=== PATIENT | male | born 1950 | race African-American/Black ===

== ENCOUNTER 2021-07-04 23:38 | Inpatient (IN) ==
[2021-07-05 00:43] LABS: ABG Base Excess 3.2 MMOL/L (-2.5-2.5); ABG HCO3 27.2 MMOL/L (20-26); ABG Oxygen Saturation 94.9 % (95-100); ABG PCO2 45.9 MM HG (35-48); ABG PH 7.403 (7.35-7.45); ABG PO2 74.7 MM HG (80-95); ABG TCO2 25.2 MMOL/L (23-27)
[2021-07-05 01:28] LABS: Alanine Aminotransferase 20 U/L (16-61); Albumin 3.5 G/DL (3.4-5.0); Alkaline Phosphatase 88 U/L (45-117); Aspartate Amino Transferase 29 U/L (0-37); Blood Urea Nitrogen 8 MG/DL (7-18); Calcium 9.4 MG/DL (8.5-10.1); Carbon Dioxide 31 MMOL/L (21-32); Estimated Glom Filtration Rate 84 ML/MIN; Glucose 85 MG/DL (74-106); Osmolality,Calculated 273.5 MOS/KG (273-304); Potassium 4.2 MMOL/L (3.5-5.1); Sodium 139 MMOL/L (136-145); Total Protein 6.8 G/DL (6.4-8.2)
[2021-07-05 02:08] LABS: Basophils # 0.1 10*3/uL (0.0-0.2); Basophils % 0.8 % (0.0-0.8); Eosinophils # 0.2 10*3/uL (0.0-0.87); Eosinophils % 2.4 % (0.00-10.9); Hematocrit 39.5 VOL% (42.0-52.0); Hemoglobin 13.3 GM/DL (14.0-18.0); Immature Granulocytes % 0.2 %; Immature Granulocytes Absolute 0.02 #; Lymphocytes # 4.4 10*3/uL (1.4-4.0); Lymphocytes % 51.5 % (21.2-54.2); Mean Corpuscular HGB Conc 33.7 GM/DL (32-36); Mean Corpuscular Volume 88.4 FL (87-102); Mean Platelet Volume 9.6 FL (9.6-12.0); Monocytes % 8.9 % (1.7-12.7); Neutrophils % 36.2 % (38.7-73.9); Platelet Count 402 T/CUMM (130-400); Red Blood Count 4.47 MC/CUMM (3.8-5.5); Red Cell Distribution Width 14.1 % (9.3-17.3); White Blood Count 8.6 T/CUMM (4-12)
[2021-07-05 03:26] LABS: Bilirubin,Urine Negative (Negative); Blood, Urine Small mg/dL (Negative); Glucose,Urine (UA) Negative (Negative); Ketones,Urine Negative (Negative); Mucus,Urine Occasional /LPF (Occasional); Nitrite,Urine Negative (Negative); Protein,Urine Negative; RBC,Urine 3 /HPF (0-4); Urine Appearance CLEAR (Clear); Urine Color Yellow (Yellow); Urine Specific Gravity 1.006 (1.001-1.035)
[2021-07-05 03:43] LABS: Barbiturates Screen,Urine Negative (Negative); Benzodiazepines Screen,Urine Negative (Negative); Cannabinoid Screen,Urine Negative (Negative); Opiate Screen,Urine Negative (Negative); Phencyclidine Screen,Urine Negative (Negative)
[2021-07-05 03:56] LABS: Eosinophils 4 % (0-10); Lymphocytes 60 % (20-55); Microcytosis Slight; Segmented Neutrophils 26 % (50-85); Target Cells Slight; Total Cells Counted 100
[2021-07-05 03:57] LABS: Hypochromasia Slight
[2021-07-05 03:58] LABS: Burr Cells Slight
[2021-07-05] MEDS: ENOXAPARIN 40 MG/0.4 ML SYRINGE SUBCUT SCH (07:01)
[2021-07-05 07:28] LABS: Risk Ratio 3.73; VLDL Cholesterol 15.8 MG/DL
[2021-07-05] MEDS: ASPIRIN 325 MG TABLET PO SCH (08:07)
[2021-07-05] MEDS: PANTOPRAZOLE 40 MG TABLET PO SCH (08:07)
[2021-07-05] MEDS ORDERED: LACTULOSE 20 GM/30 ML UDCUP PO ONE (11:00)
[2021-07-06 06:50] LABS: Basophils # 0.1 10*3/uL (0.0-0.2); Basophils % 0.6 % (0.0-0.8); Eosinophils # 0.2 10*3/uL (0.0-0.87); Eosinophils % 2.3 % (0.00-10.9); Hematocrit 36.9 VOL% (42.0-52.0); Hemoglobin 12.4 GM/DL (14.0-18.0); Immature Granulocytes % 0.2 %; Immature Granulocytes Absolute 0.02 #; Lymphocytes # 4.8 10*3/uL (1.4-4.0); Lymphocytes % 52.6 % (21.2-54.2); Mean Corpuscular HGB Conc 33.6 GM/DL (32-36); Mean Corpuscular Volume 87.4 FL (87-102); Mean Platelet Volume 9.7 FL (9.6-12.0); Monocytes % 6.9 % (1.7-12.7); Neutrophils % 37.4 % (38.7-73.9); Platelet Count 352 T/CUMM (130-400); Red Blood Count 4.22 MC/CUMM (3.8-5.5); Red Cell Distribution Width 14.2 % (9.3-17.3); White Blood Count 9.1 T/CUMM (4-12)
[2021-07-06 07:14] LABS: Calcium 8.6 MG/DL (8.5-10.1); Osmolality,Calculated 282.3 MOS/KG (273-304); Potassium 3.6 MMOL/L (3.5-5.1)
[2021-07-06 07:17] LABS: Eosinophils 3 % (0-10); Lymphocytes 52 % (20-55); Segmented Neutrophils 35 % (50-85); Total Cells Counted 100
[2021-07-06 07:18] LABS: Acanthocytes Few; Burr Cells Few; Hypochromasia 1+; Microcytosis 1+; Target Cells Slight
[2021-07-06 07:19] LABS: Platelet Estimate Normal
[2021-07-06] MEDS: PANTOPRAZOLE 40 MG TABLET PO SCH (09:27)
[2021-07-06] MEDS: ASPIRIN 325 MG TABLET PO SCH (09:27)
[2021-07-06] MEDS: ENOXAPARIN 40 MG/0.4 ML SYRINGE SUBCUT SCH (09:27)
[2021-07-06] MEDS: FOLIC ACID 1 MG TABLET PO SCH ×2 (09:27→10:38)
[2021-07-06 09:54] LABS: Free T4 (Free Thyroxine) 0.95 NG/DL (0.76-1.46); Thyroid Stimulating Hormone 0.907 uIU/ml (0.358-3.74)
[2021-07-06] MEDS ORDERED: THIAMINE 200 MG/2 ML VIAL IV ONE (11:00)
[2021-07-06 12:15] LABS: Folate 8.14 NG/ML (5.38-24.0); Vitamin B12 211 PG/ML (211-911)
[2021-07-06 13:46] LABS: RPR Confirm - Less than 1 yr REACTIVE (Nonreactive)
[2021-07-06] MEDS: PENICILLIN G POTASSIUM INJ 6,000,000 UNIT in SODIUM CHLORIDE 0.9% 100 ML IV SCH (21:48)
[2021-07-07] MEDS: PENICILLIN G POTASSIUM INJ 6,000,000 UNIT in SODIUM CHLORIDE 0.9% 100 ML IV SCH ×2 (03:20→09:33)
[2021-07-07 05:57] LABS: Basophils % 0.4 % (0.0-0.8); Eosinophils # 0.2 10*3/uL (0.0-0.87); Eosinophils % 2.3 % (0.00-10.9); Hematocrit 35.2 VOL% (42.0-52.0); Hemoglobin 11.9 GM/DL (14.0-18.0); Immature Granulocytes % 0.2 %; Immature Granulocytes Absolute 0.02 #; Lymphocytes # 4.8 10*3/uL (1.4-4.0); Lymphocytes % 53.2 % (21.2-54.2); Mean Corpuscular HGB Conc 33.8 GM/DL (32-36); Mean Corpuscular Volume 88.7 FL (87-102); Mean Platelet Volume 9.1 FL (9.6-12.0); Monocytes % 9.2 % (1.7-12.7); Neutrophils % 34.7 % (38.7-73.9); Platelet Count 338 T/CUMM (130-400); Red Blood Count 3.97 MC/CUMM (3.8-5.5); Red Cell Distribution Width 14.2 % (9.3-17.3); White Blood Count 9.1 T/CUMM (4-12)
[2021-07-07 06:16] LABS: Calcium 8.6 MG/DL (8.5-10.1); Osmolality,Calculated 278.4 MOS/KG (273-304); Potassium 3.8 MMOL/L (3.5-5.1)
[2021-07-07 06:36] LABS: Eosinophils 3 % (0-10); Hypochromasia Slight; Lymphocytes 56 % (20-55); Microcytosis Slight; Platelet Estimate Adequate; Segmented Neutrophils 33 % (50-85); Total Cells Counted 100
[2021-07-07 08:28] LABS: INR 0.9; PT Patient Result 10.4 SECS (10.5-12.0)
[2021-07-07] MEDS: ASPIRIN 325 MG TABLET PO SCH (09:33)
[2021-07-07] MEDS: THIAMINE 100 MG TABLET PO SCH (10:06)
[2021-07-07] MEDS: PANTOPRAZOLE 40 MG TABLET PO SCH (10:06)
[2021-07-07] MEDS: FOLIC ACID 1 MG TABLET PO SCH (10:06)
[2021-07-07] MEDS ORDERED: HALOPERIDOL 5 MG/ML AMP IM ONE (14:12)
[2021-07-07] MEDS ORDERED: LORazepam 2 MG/1 ML VIAL ONE (14:36)
[2021-07-07] MEDS ORDERED: LORazepam 2 MG/1 ML VIAL IM ONE (15:00)
[2021-07-07] MEDS: PENICILLIN G POTASSIUM INJ 4,000,000 UNIT in SODIUM CHLORIDE 0.9% 100 ML IV SCH ×2 (15:46→23:02)
[2021-07-07] MEDS ORDERED: HALOPERIDOL 5 MG TABLET PO SCH (21:00)
[2021-07-07] MEDS: risperiDONE 1 MG TABLET PO SCH (23:03)
[2021-07-08] MEDS ORDERED: HALOPERIDOL 5 MG/ML AMP IM PRN (00:05)
[2021-07-08] MEDS: PENICILLIN G POTASSIUM INJ 4,000,000 UNIT in SODIUM CHLORIDE 0.9% 100 ML IV SCH ×5 (03:04→18:01)
[2021-07-08 08:45] LABS: Basophils # 0.1 10*3/uL (0.0-0.2); Basophils % 0.9 % (0.0-0.8); Eosinophils # 0.1 10*3/uL (0.0-0.87); Hematocrit 40.5 VOL% (42.0-52.0); Hemoglobin 12.8 GM/DL (14.0-18.0); Immature Granulocytes % 0.2 %; Immature Granulocytes Absolute 0.01 #; Lymphocytes # 2.7 10*3/uL (1.4-4.0); Lymphocytes % 41.9 % (21.2-54.2); Mean Corpuscular HGB Conc 31.6 GM/DL (32-36); Mean Corpuscular Volume 95.5 FL (87-102); Mean Platelet Volume 9.5 FL (9.6-12.0); Monocytes % 9.7 % (1.7-12.7); Neutrophils % 45.3 % (38.7-73.9); Platelet Count 322 T/CUMM (130-400); Red Blood Count 4.24 MC/CUMM (3.8-5.5); Red Cell Distribution Width 15.1 % (9.3-17.3); White Blood Count 6.5 T/CUMM (4-12)
[2021-07-08 09:11] LABS: Osmolality,Calculated 278.3 MOS/KG (273-304); Potassium 4.3 MMOL/L (3.5-5.1)
[2021-07-08] MEDS: THIAMINE 100 MG TABLET PO SCH (10:29)
[2021-07-08] MEDS: FOLIC ACID 1 MG TABLET PO SCH (10:29)
[2021-07-08] MEDS: PANTOPRAZOLE 40 MG TABLET PO SCH (10:29)
[2021-07-08 10:44] LABS: Appearance,CSF Clear; Lymphocytes,CSF 80 %; Monocytes,CSF 20 %; Red Blood Cell,CSF 469 C/CUMM; White Blood Cell,CSF 11 C/CUMM
[2021-07-08 10:45] LABS: Glucose,CSF 52 MG/DL (40-70)
[2021-07-08] MEDS: LORazepam 2 MG/1 ML VIAL IM PRN (10:59)
[2021-07-08] MEDS: LACTATED RINGERS 1,000 ML IV SCH (11:33)
[2021-07-08 14:00] LABS: Albumin 3.1 G/DL (3.4-5.0); Bilirubin,Total 0.9 MG/DL (0.20-1.00); Calcium 9.1 MG/DL (8.5-10.1); Osmolality,Calculated 278.3 MOS/KG (273-304); Potassium 3.8 MMOL/L (3.5-5.1); Total Protein 6.6 G/DL (6.4-8.2)
[2021-07-08] MEDS: risperiDONE 1 MG TABLET PO SCH (21:25)
[2021-07-09] MEDS: PENICILLIN G POTASSIUM INJ 4,000,000 UNIT in SODIUM CHLORIDE 0.9% 100 ML IV SCH ×6 (00:20→23:07)
[2021-07-09] MEDS: LACTATED RINGERS 1,000 ML IV SCH ×2 (01:58→23:10)
[2021-07-09] MEDS: LORazepam 2 MG/1 ML VIAL IM PRN (03:26)
[2021-07-09 05:32] LABS: Basophils # 0.1 10*3/uL (0.0-0.2); Basophils % 0.6 % (0.0-0.8); Eosinophils # 0.2 10*3/uL (0.0-0.87); Hematocrit 38.2 VOL% (42.0-52.0); Immature Granulocytes % 0.2 %; Immature Granulocytes Absolute 0.02 #; Lymphocytes # 3.6 10*3/uL (1.4-4.0); Lymphocytes % 42.3 % (21.2-54.2); Mean Corpuscular Volume 89.3 FL (87-102); Mean Platelet Volume 9.2 FL (9.6-12.0); Monocytes % 8.5 % (1.7-12.7); Neutrophils % 46.4 % (38.7-73.9); Platelet Count 385 T/CUMM (130-400); Red Blood Count 4.28 MC/CUMM (3.8-5.5); Red Cell Distribution Width 14.4 % (9.3-17.3); White Blood Count 8.6 T/CUMM (4-12)
[2021-07-09 05:54] LABS: Calcium 9.1 MG/DL (8.5-10.1); Potassium 4.1 MMOL/L (3.5-5.1)
[2021-07-09] MEDS ORDERED: HALOPERIDOL 5 MG/ML AMP IM PRN ×2 (08:53→10:00)
[2021-07-09] MEDS ORDERED: LORazepam 2 MG/1 ML VIAL IV PRN ×2 (09:00→09:52)
[2021-07-09] MEDS: FOLIC ACID 1 MG TABLET PO SCH (09:42)
[2021-07-09] MEDS: THIAMINE 100 MG TABLET PO SCH (09:42)
[2021-07-09] MEDS: PANTOPRAZOLE 40 MG TABLET PO SCH (09:42)
[2021-07-09 12:41] LABS: VDRL Spinal Fluid Negative (Negative)
[2021-07-09 14:31] LABS: HIV Antigen/Antibody Result Nonreactive (Nonreactive)
[2021-07-09] MEDS: risperiDONE 1 MG TABLET PO SCH (23:07)
[2021-07-10] MEDS: PENICILLIN G POTASSIUM INJ 4,000,000 UNIT in SODIUM CHLORIDE 0.9% 100 ML IV SCH ×6 (00:23→21:26)
[2021-07-10] MEDS: LACTATED RINGERS 1,000 ML IV SCH (00:24)
[2021-07-10] MEDS ORDERED: LORazepam 2 MG/1 ML VIAL ONE (00:46)
[2021-07-10 05:25] LABS: Basophils # 0.1 10*3/uL (0.0-0.2); Basophils % 0.5 % (0.0-0.8); Eosinophils # 0.2 10*3/uL (0.0-0.87); Eosinophils % 2.2 % (0.00-10.9); Hemoglobin 12.8 GM/DL (14.0-18.0); Immature Granulocytes % 0.2 %; Immature Granulocytes Absolute 0.02 #; Lymphocytes # 3.8 10*3/uL (1.4-4.0); Lymphocytes % 38.1 % (21.2-54.2); Mean Corpuscular HGB Conc 33.7 GM/DL (32-36); Mean Platelet Volume 9.2 FL (9.6-12.0); Monocytes % 9.3 % (1.7-12.7); Neutrophils % 49.7 % (38.7-73.9); Platelet Count 371 T/CUMM (130-400); Red Blood Count 4.32 MC/CUMM (3.8-5.5); Red Cell Distribution Width 14.3 % (9.3-17.3); White Blood Count 9.9 T/CUMM (4-12)
[2021-07-10 05:57] LABS: Calcium 8.6 MG/DL (8.5-10.1); Potassium 4.1 MMOL/L (3.5-5.1)
[2021-07-10] MEDS: ENOXAPARIN 40 MG/0.4 ML SYRINGE SUBCUT SCH (08:39)
[2021-07-10] MEDS: THIAMINE 100 MG TABLET PO SCH (09:15)
[2021-07-10] MEDS: PANTOPRAZOLE 40 MG TABLET PO SCH (09:15)
[2021-07-10] MEDS: FOLIC ACID 1 MG TABLET PO SCH (09:15)
[2021-07-10] MEDS: risperiDONE 1 MG TABLET PO SCH (21:22)
[2021-07-10] MEDS: HALOPERIDOL 5 MG/ML AMP IM PRN (21:22)
[2021-07-11] MEDS: PENICILLIN G POTASSIUM INJ 4,000,000 UNIT in SODIUM CHLORIDE 0.9% 100 ML IV SCH ×6 (02:24→20:55)
[2021-07-11 05:09] LABS: Basophils % 0.5 % (0.0-0.8); Eosinophils # 0.2 10*3/uL (0.0-0.87); Eosinophils % 1.9 % (0.00-10.9); Hematocrit 39.7 VOL% (42.0-52.0); Hemoglobin 13.5 GM/DL (14.0-18.0); Immature Granulocytes % 0.1 %; Immature Granulocytes Absolute 0.01 #; Mean Corpuscular Volume 88.8 FL (87-102); Mean Platelet Volume 9.1 FL (9.6-12.0); Monocytes % 8.1 % (1.7-12.7); Neutrophils % 53.4 % (38.7-73.9); Platelet Count 390 T/CUMM (130-400); Red Blood Count 4.47 MC/CUMM (3.8-5.5); Red Cell Distribution Width 14.3 % (9.3-17.3); White Blood Count 8.3 T/CUMM (4-12)
[2021-07-11 05:32] LABS: Calcium 9.4 MG/DL (8.5-10.1); Osmolality,Calculated 275.4 MOS/KG (273-304); Potassium 4.1 MMOL/L (3.5-5.1)
[2021-07-11] MEDS: THIAMINE 100 MG TABLET PO SCH (09:06)
[2021-07-11] MEDS: ENOXAPARIN 40 MG/0.4 ML SYRINGE SUBCUT SCH (09:06)
[2021-07-11] MEDS: FOLIC ACID 1 MG TABLET PO SCH ×2 (09:06→09:15)
[2021-07-11] MEDS: PANTOPRAZOLE 40 MG TABLET PO SCH ×2 (09:06→09:15)
[2021-07-11 14:11] LABS: M. Tuberculosis PCR Result Negative (Negative); M. Tuberculosis PCR Source CSF
[2021-07-11] MEDS: risperiDONE 1 MG TABLET PO SCH (21:09)
[2021-07-12] MEDS: PENICILLIN G POTASSIUM INJ 4,000,000 UNIT in SODIUM CHLORIDE 0.9% 100 ML IV SCH ×6 (01:10→20:53)
[2021-07-12] MEDS: HALOPERIDOL 5 MG/ML AMP IM PRN ×2 (01:41→08:40)
[2021-07-12] MEDS: LORazepam 2 MG/1 ML VIAL IV PRN (01:59)
[2021-07-12 05:57] LABS: Basophils # 0.1 10*3/uL (0.0-0.2); Basophils % 0.5 % (0.0-0.8); Eosinophils # 0.2 10*3/uL (0.0-0.87); Eosinophils % 1.9 % (0.00-10.9); Hematocrit 40.5 VOL% (42.0-52.0); Hemoglobin 13.6 GM/DL (14.0-18.0); Immature Granulocytes % 0.2 %; Immature Granulocytes Absolute 0.02 #; Lymphocytes # 3.6 10*3/uL (1.4-4.0); Lymphocytes % 37.4 % (21.2-54.2); Mean Corpuscular HGB Conc 33.6 GM/DL (32-36); Mean Corpuscular Volume 88.2 FL (87-102); Mean Platelet Volume 9.2 FL (9.6-12.0); Monocytes % 12.3 % (1.7-12.7); Neutrophils % 47.7 % (38.7-73.9); Platelet Count 364 T/CUMM (130-400); Red Blood Count 4.59 MC/CUMM (3.8-5.5); Red Cell Distribution Width 14.6 % (9.3-17.3); White Blood Count 9.5 T/CUMM (4-12)
[2021-07-12 06:21] LABS: Calcium 9.3 MG/DL (8.5-10.1); Osmolality,Calculated 281.3 MOS/KG (273-304); Potassium 4.3 MMOL/L (3.5-5.1)
[2021-07-12] MEDS: THIAMINE 100 MG TABLET PO SCH (09:32)
[2021-07-12] MEDS: PANTOPRAZOLE 40 MG TABLET PO SCH (09:32)
[2021-07-12] MEDS: FOLIC ACID 1 MG TABLET PO SCH (09:32)
[2021-07-12] MEDS: ENOXAPARIN 40 MG/0.4 ML SYRINGE SUBCUT SCH (09:34)
[2021-07-12 12:36] LABS: West Nile Virus Ab, IgG, CSF Negative (Negative); West Nile Virus Ab, IgM, CSF Negative (Negative)
[2021-07-12 15:22] LABS: % Iron Saturation 27.8 % (18-50); Ferritin 185.4 ng/mL (26-388)
[2021-07-12] MEDS: risperiDONE 1 MG TABLET PO SCH (20:54)
[2021-07-13] MEDS: PENICILLIN G POTASSIUM INJ 4,000,000 UNIT in SODIUM CHLORIDE 0.9% 100 ML IV SCH ×6 (01:59→21:30)
[2021-07-13] MEDS: LORazepam 2 MG/1 ML VIAL IV PRN (05:17)
[2021-07-13 05:51] LABS: Basophils # 0.1 10*3/uL (0.0-0.2); Basophils % 0.5 % (0.0-0.8); Eosinophils # 0.3 10*3/uL (0.0-0.87); Eosinophils % 2.8 % (0.00-10.9); Hematocrit 41.2 VOL% (42.0-52.0); Hemoglobin 13.9 GM/DL (14.0-18.0); Immature Granulocytes % 0.2 %; Immature Granulocytes Absolute 0.02 #; Lymphocytes # 4.1 10*3/uL (1.4-4.0); Lymphocytes % 44.4 % (21.2-54.2); Mean Corpuscular HGB Conc 33.7 GM/DL (32-36); Mean Platelet Volume 9.1 FL (9.6-12.0); Neutrophils % 41.1 % (38.7-73.9); Platelet Count 390 T/CUMM (130-400); Red Blood Count 4.63 MC/CUMM (3.8-5.5); Red Cell Distribution Width 14.6 % (9.3-17.3); White Blood Count 9.2 T/CUMM (4-12)
[2021-07-13 06:15] LABS: Calcium 9.4 MG/DL (8.5-10.1); Osmolality,Calculated 277.5 MOS/KG (273-304); Potassium 3.9 MMOL/L (3.5-5.1)
[2021-07-13 06:29] LABS: Platelet Estimate Normal
[2021-07-13] MEDS: FOLIC ACID 1 MG TABLET PO SCH (09:05)
[2021-07-13] MEDS: PANTOPRAZOLE 40 MG TABLET PO SCH (09:05)
[2021-07-13] MEDS: ENOXAPARIN 40 MG/0.4 ML SYRINGE SUBCUT SCH (09:05)
[2021-07-13] MEDS: THIAMINE 100 MG TABLET PO SCH (09:05)
[2021-07-13] MEDS: risperiDONE 1 MG TABLET PO SCH (21:30)
[2021-07-14] MEDS: PENICILLIN G POTASSIUM INJ 4,000,000 UNIT in SODIUM CHLORIDE 0.9% 100 ML IV SCH ×6 (01:28→20:16)
[2021-07-14 06:31] LABS: Basophils # 0.1 10*3/uL (0.0-0.2); Basophils % 0.8 % (0.0-0.8); Eosinophils # 0.2 10*3/uL (0.0-0.87); Hematocrit 40.2 VOL% (42.0-52.0); Hemoglobin 13.4 GM/DL (14.0-18.0); Immature Granulocytes % 0.2 %; Immature Granulocytes Absolute 0.02 #; Lymphocytes # 3.7 10*3/uL (1.4-4.0); Lymphocytes % 36.9 % (21.2-54.2); Mean Corpuscular HGB Conc 33.3 GM/DL (32-36); Mean Corpuscular Volume 88.9 FL (87-102); Mean Platelet Volume 9.3 FL (9.6-12.0); Monocytes % 13.5 % (1.7-12.7); Neutrophils % 46.6 % (38.7-73.9); Platelet Count 411 T/CUMM (130-400); Red Blood Count 4.52 MC/CUMM (3.8-5.5); Red Cell Distribution Width 14.5 % (9.3-17.3)
[2021-07-14 06:54] LABS: Osmolality,Calculated 276.5 MOS/KG (273-304); Potassium 3.8 MMOL/L (3.5-5.1)
[2021-07-14] MEDS: FOLIC ACID 1 MG TABLET PO SCH (08:28)
[2021-07-14] MEDS: ENOXAPARIN 40 MG/0.4 ML SYRINGE SUBCUT SCH (08:28)
[2021-07-14] MEDS: PANTOPRAZOLE 40 MG TABLET PO SCH (08:28)
[2021-07-14] MEDS: THIAMINE 100 MG TABLET PO SCH (08:28)
[2021-07-14] MEDS: risperiDONE 1 MG TABLET PO SCH (20:16)
[2021-07-15] MEDS: PENICILLIN G POTASSIUM INJ 4,000,000 UNIT in SODIUM CHLORIDE 0.9% 100 ML IV SCH ×6 (00:15→21:02)
[2021-07-15 05:49] LABS: Basophils # 0.1 10*3/uL (0.0-0.2); Basophils % 0.6 % (0.0-0.8); Eosinophils # 0.2 10*3/uL (0.0-0.87); Hematocrit 40.7 VOL% (42.0-52.0); Hemoglobin 13.6 GM/DL (14.0-18.0); Immature Granulocytes % 0.2 %; Immature Granulocytes Absolute 0.02 #; Lymphocytes # 3.8 10*3/uL (1.4-4.0); Lymphocytes % 45.2 % (21.2-54.2); Mean Corpuscular HGB Conc 33.4 GM/DL (32-36); Mean Corpuscular Volume 88.7 FL (87-102); Mean Platelet Volume 9.2 FL (9.6-12.0); Monocytes % 9.9 % (1.7-12.7); Neutrophils % 42.1 % (38.7-73.9); Platelet Count 396 T/CUMM (130-400); Red Blood Count 4.59 MC/CUMM (3.8-5.5); Red Cell Distribution Width 14.6 % (9.3-17.3); White Blood Count 8.5 T/CUMM (4-12)
[2021-07-15 06:06] LABS: Osmolality,Calculated 278.4 MOS/KG (273-304); Potassium 4.1 MMOL/L (3.5-5.1)
[2021-07-15] MEDS: ENOXAPARIN 40 MG/0.4 ML SYRINGE SUBCUT SCH (14:02)
[2021-07-15] MEDS: FOLIC ACID 1 MG TABLET PO SCH (14:03)
[2021-07-15] MEDS: PANTOPRAZOLE 40 MG TABLET PO SCH (14:03)
[2021-07-15] MEDS: THIAMINE 100 MG TABLET PO SCH (14:03)
[2021-07-15] MEDS: risperiDONE 1 MG TABLET PO SCH (21:02)
[2021-07-16] MEDS: HALOPERIDOL 5 MG/ML AMP IM PRN ×2 (00:47→21:55)
[2021-07-16] MEDS: PENICILLIN G POTASSIUM INJ 4,000,000 UNIT in SODIUM CHLORIDE 0.9% 100 ML IV SCH ×6 (00:51→20:55)
[2021-07-16] MEDS: LORazepam 2 MG/1 ML VIAL IV PRN ×2 (01:37→22:52)
[2021-07-16] MEDS: ENOXAPARIN 40 MG/0.4 ML SYRINGE SUBCUT SCH (08:32)
[2021-07-16] MEDS: PANTOPRAZOLE 40 MG TABLET PO SCH (08:32)
[2021-07-16] MEDS: FOLIC ACID 1 MG TABLET PO SCH (08:32)
[2021-07-16] MEDS: THIAMINE 100 MG TABLET PO SCH (08:32)
[2021-07-16 09:23] LABS: Basophils # 0.1 10*3/uL (0.0-0.2); Basophils % 0.8 % (0.0-0.8); Eosinophils # 0.2 10*3/uL (0.0-0.87); Eosinophils % 3.1 % (0.00-10.9); Hematocrit 42.1 VOL% (42.0-52.0); Immature Granulocytes % 0.3 %; Immature Granulocytes Absolute 0.02 #; Lymphocytes # 3.7 10*3/uL (1.4-4.0); Lymphocytes % 49.2 % (21.2-54.2); Mean Corpuscular HGB Conc 33.3 GM/DL (32-36); Mean Corpuscular Volume 88.6 FL (87-102); Mean Platelet Volume 9.1 FL (9.6-12.0); Monocytes % 9.7 % (1.7-12.7); Neutrophils % 36.9 % (38.7-73.9); Platelet Count 407 T/CUMM (130-400); Red Blood Count 4.75 MC/CUMM (3.8-5.5); Red Cell Distribution Width 14.5 % (9.3-17.3); White Blood Count 7.5 T/CUMM (4-12)
[2021-07-16 09:38] LABS: Calcium 9.8 MG/DL (8.5-10.1); Osmolality,Calculated 276.5 MOS/KG (273-304); Potassium 4.5 MMOL/L (3.5-5.1)
[2021-07-16 10:12] LABS: Acanthocytes Few; Atypical Lymphocytes Few; Band Neutrophils 1 % (0-10); Burr Cells Few; Eosinophils 2 % (0-10); Lymphocytes 49 % (20-55); Segmented Neutrophils 40 % (50-85); Target Cells Few; Total Cells Counted 100
[2021-07-16 10:14] LABS: Platelet Estimate Normal
[2021-07-16] MEDS: risperiDONE 1 MG TABLET PO SCH (20:54)
[2021-07-17] MEDS: PENICILLIN G POTASSIUM INJ 4,000,000 UNIT in SODIUM CHLORIDE 0.9% 100 ML IV SCH ×6 (01:32→21:46)
[2021-07-17] MEDS: FOLIC ACID 1 MG TABLET PO SCH (09:09)
[2021-07-17] MEDS: PANTOPRAZOLE 40 MG TABLET PO SCH (09:11)
[2021-07-17] MEDS: risperiDONE 1 MG TABLET PO SCH ×2 (09:12→21:46)
[2021-07-17] MEDS: ENOXAPARIN 40 MG/0.4 ML SYRINGE SUBCUT SCH (09:13)
[2021-07-17] MEDS: THIAMINE 100 MG TABLET PO SCH (09:13)
[2021-07-17] MEDS: HALOPERIDOL 5 MG/ML AMP IM PRN ×2 (10:24→22:55)
[2021-07-17] MEDS: LORazepam 2 MG/1 ML VIAL IV PRN ×2 (12:11→23:32)
[2021-07-18] MEDS: PENICILLIN G POTASSIUM INJ 4,000,000 UNIT in SODIUM CHLORIDE 0.9% 100 ML IV SCH ×5 (00:18→23:12)
[2021-07-18] MEDS: risperiDONE 1 MG TABLET PO SCH ×2 (08:45→21:56)
[2021-07-18] MEDS: THIAMINE 100 MG TABLET PO SCH (08:45)
[2021-07-18] MEDS: ENOXAPARIN 40 MG/0.4 ML SYRINGE SUBCUT SCH (08:45)
[2021-07-18] MEDS: PANTOPRAZOLE 40 MG TABLET PO SCH (08:45)
[2021-07-18] MEDS: FOLIC ACID 1 MG TABLET PO SCH (08:45)
[2021-07-18] MEDS: HALOPERIDOL 5 MG/ML AMP IM PRN (17:53)
[2021-07-18] MEDS: LORazepam 2 MG/1 ML VIAL IV PRN (17:54)
[2021-07-18] MEDS ORDERED: LORazepam 2 MG/1 ML VIAL IV ONE (23:34)
[2021-07-19] MEDS: PENICILLIN G POTASSIUM INJ 4,000,000 UNIT in SODIUM CHLORIDE 0.9% 100 ML IV SCH ×3 (04:48→13:05)
[2021-07-19 06:30] LABS: Basophils # 0.1 10*3/uL (0.0-0.2); Basophils % 0.8 % (0.0-0.8); Eosinophils # 0.2 10*3/uL (0.0-0.87); Eosinophils % 2.3 % (0.00-10.9); Hematocrit 41.9 VOL% (42.0-52.0); Hemoglobin 14.1 GM/DL (14.0-18.0); Immature Granulocytes % 0.3 %; Immature Granulocytes Absolute 0.02 #; Lymphocytes # 2.8 10*3/uL (1.4-4.0); Lymphocytes % 38.1 % (21.2-54.2); Mean Corpuscular HGB Conc 33.7 GM/DL (32-36); Mean Corpuscular Volume 88.4 FL (87-102); Monocytes % 10.4 % (1.7-12.7); Neutrophils % 48.1 % (38.7-73.9); Platelet Count 392 T/CUMM (130-400); Red Blood Count 4.74 MC/CUMM (3.8-5.5); Red Cell Distribution Width 14.2 % (9.3-17.3); White Blood Count 7.4 T/CUMM (4-12)
[2021-07-19 07:02] LABS: Calcium 9.8 MG/DL (8.5-10.1); Osmolality,Calculated 280.3 MOS/KG (273-304); Potassium 4.1 MMOL/L (3.5-5.1)
[2021-07-19] MEDS: ENOXAPARIN 40 MG/0.4 ML SYRINGE SUBCUT SCH (10:06)
[2021-07-19] MEDS: FOLIC ACID 1 MG TABLET PO SCH (10:06)
[2021-07-19] MEDS: risperiDONE 1 MG TABLET PO SCH ×2 (10:27→21:58)
[2021-07-19] MEDS: PANTOPRAZOLE 40 MG TABLET PO SCH (10:27)
[2021-07-19] MEDS: THIAMINE 100 MG TABLET PO SCH (10:27)
[2021-07-19] MEDS: HALOPERIDOL 5 MG/ML AMP IM PRN (23:43)
[2021-07-20] MEDS: LORazepam 2 MG/1 ML VIAL IV PRN (00:18)
[2021-07-20 08:39] LABS: Basophils # 0.1 10*3/uL (0.0-0.2); Basophils % 0.8 % (0.0-0.8); Eosinophils # 0.2 10*3/uL (0.0-0.87); Eosinophils % 2.2 % (0.00-10.9); Hematocrit 43.5 VOL% (42.0-52.0); Hemoglobin 14.7 GM/DL (14.0-18.0); Immature Granulocytes % 0.1 %; Immature Granulocytes Absolute 0.01 #; Lymphocytes # 3.1 10*3/uL (1.4-4.0); Lymphocytes % 43.2 % (21.2-54.2); Mean Corpuscular HGB Conc 33.8 GM/DL (32-36); Mean Corpuscular Volume 89.3 FL (87-102); Mean Platelet Volume 9.3 FL (9.6-12.0); Monocytes % 11.2 % (1.7-12.7); Neutrophils % 42.5 % (38.7-73.9); Platelet Count 387 T/CUMM (130-400); Red Blood Count 4.87 MC/CUMM (3.8-5.5); Red Cell Distribution Width 14.3 % (9.3-17.3); White Blood Count 7.2 T/CUMM (4-12)
[2021-07-20 09:20] LABS: Calcium 9.8 MG/DL (8.5-10.1); Osmolality,Calculated 274.7 MOS/KG (273-304); Potassium 4.9 MMOL/L (3.5-5.1)
[2021-07-20] MEDS: THIAMINE 100 MG TABLET PO SCH (10:54)
[2021-07-20] MEDS: ENOXAPARIN 40 MG/0.4 ML SYRINGE SUBCUT SCH ×3 (10:54→10:57)
[2021-07-20] MEDS: PANTOPRAZOLE 40 MG TABLET PO SCH (10:54)
[2021-07-20] MEDS: risperiDONE 1 MG TABLET PO SCH (10:54)
[2021-07-20] MEDS: FOLIC ACID 1 MG TABLET PO SCH (10:54)
[2021-07-20 12:00] VITALS: BP 116/72
== END 2021-07-20 13:31 | DRG 56 ==
LOC: N.ED 23:38 → N.EDINP 23:38 → N.5E 07-05 06:22 → SUATTDRO 07-06 09:17
PROVIDERS: ADMIT Internal Medicine; ATTEND Internal Medicine